=== PATIENT | male | born 1945 | race Caucasian/White ===

== ENCOUNTER → 2020-02-01 | Outpatient (CLI) | payer MEDICARE ==
--- NOTE | 2020-02-01 17:05 | RAD ---
Left lower extremity venous doppler ultrasound History: Nonhealing ulcer Comparison: None Findings: Multiple grayscale, color, and duplex spectral analysis sonographic images were acquired of left lower extremity veins. There was some reflux demonstrated at the saphenous femoral junction. No other reflux was demonstrated. No incompetent perforators were demonstrated near wound. Impression: 1. There was reflux demonstrated at the saphenous femoral junction. No other reflux was demonstrated. Electronically signed by: Leonel Washington MD (02/01/2020 5:02 PM) [id number]
--- NOTE | 2020-02-01 19:07 | RAD ---
ANKLE BRACHIAL INDEX Indication: Reason: NON HEALING WOUND LATERAL TO POSTERIOR RIGHT ANKLE / Spl. Instructions: / History: Comparison: None. Procedure: Arterial pressures are measured in the arms and ankles. Findings: . Right ankle: 149 mm Hg. Right arm: 128 mm Hg. Left ankle: 159 mm Hg. Left arm: 126 mm Hg. Right leg ROGELIO: 1.2. Left leg ROGELIO: 1.3. ROGELIO interpretation: 0.90 and above Generally normal 0.7 - 0.89 Mild disease 0.51- 0.69 Moderate disease 0.5 or below Severe disease IMPRESSION: Normal ABIs. End of impression: LEFT LOWER EXTREMITY DUPLEX ARTERY ULTRASOUND Indication: Reason: Nonhealing ulcer to left lower extremity. Comparison: None. Procedure: Real-time grayscale, color flow Doppler, and Doppler spectral waveform analysis of the arterial system of the lower extremity is performed. Findings: The common femoral artery and profunda artery waveforms are biphasic. The superficial femoral artery, popliteal artery, and proximal posterior tibial artery waveforms are triphasic. Distal posterior tibial artery waveform is biphasic. Peroneal artery waveform is monophasic. Anterior tibial artery and dorsalis pedis artery waveforms are triphasic. No elevated peak systolic velocity is identified. IMPRESSION: No hemodynamically significant stenosis. Electronically signed by: Colton Taveras MD (02/01/2020 7:04 PM) [facility]
== END | disposition home or self-care (01) ==
LOC: US 12:58
PROVIDERS: ATTEND Preventive Medicine Undersea and Hyperbaric Medicine
DX: L97.319 Non-pressure chronic ulcer of right ankle with unspecified severity (principal); L97.929 Non-pressure chronic ulcer of unspecified part of left lower leg with unspecified severity; I10 Essential (primary) hypertension; I87.2 Venous insufficiency (chronic) (peripheral); I25.10 Atherosclerotic heart disease of native coronary artery without angina pectoris; Z96.652 Presence of left artificial knee joint; Z96.642 Presence of left artificial hip joint
CPT/HCPCS: 93922; 93926; 93971